=== PATIENT | male | born 1960 | race Caucasian/White ===

== ENCOUNTER 2023-07-19 12:39 | Inpatient (IN) | payer OTHER ==
[~2023-07-19] VITALS: Ht 188 cm; Wt 113.6 kg
[2023-07-19] MEDS: SODIUM CHLORIDE 0.9% 1,000 ML IV ONE (13:37)
[2023-07-19 14:10] LABS: Basophils # (auto) 0 10 ^3/uL (0-0.2); Basophils % (auto) 0.2 % (0.0-2.0); Chloride 102 mmol/L (98-107); Eosinophils # (auto) 0 10 ^3/uL (0-0.8); Eosinophils % (auto) 0.3 % (0.0-7.0); Hematocrit 36.5 % (41.0-53.0); Hemoglobin 12.3 g/dL (13.5-17.5); Lymphocytes # (auto) 0.7 10 ^3/uL (0.4-5.4); Lymphocytes % (auto) 6.4 % (10.0-50.0); Mean Corpuscular Hemoglobin 28.3 pg (28.0-32.0); Mean Corpuscular Hgb Conc. 33.7 g/dL (32.0-36.0); Mean Corpuscular Volume 83.9 fL (80.0-100.0); Monocytes # (auto) 0.8 10 ^3/uL (0-1.3); Monocytes % (auto) 7.9 % (0.0-12.0); Neutrophils # (auto) 9.1 10 ^3/uL (1.6-8.6); Neutrophils % (auto) 85.2 % (37.0-80.0); Potassium 3.4 mmol/L (3.5-5.1); Red Blood Cells 4.35 10^6/uL (4.5-5.90); Red Cell Distribution Width 14.7 % (11.8-14.3); Sodium 136 mmol/L (136-145); White Blood Cell 10.7 10^3/uL (4.4-10.8)
[2023-07-19 14:11] LABS: Anion Gap 5 (5-15); Carbon Dioxide 29 mmol/L (20-30)
[2023-07-19 14:12] LABS: Calcium 8.7 mg/dL (8.5-10.1)
[2023-07-19 14:16] LABS: Glucose 103 mg/dL (74-106)
[2023-07-19 14:17] LABS: BUN/Creatinine Ratio 14.9 (10.0-20.0); Blood Urea Nitrogen 21 mg/dL (9-23)
[2023-07-19 17:00] VITALS: PULSE 83; RESP 16; O2SAT 97
[2023-07-19] MEDS ORDERED: NITROGLYCERIN 0.4 MG SL TAB SL PRN (17:30)
[2023-07-19] MEDS ORDERED: DOCUSATE SOD 100 MG CAP PO PRN (17:30)
[2023-07-19] MEDS ORDERED: ONDANSETRON HCL 4 MG/2 ML VIAL IV PRN (17:30)
[2023-07-19] MEDS ORDERED: POTA-228 PO (18:53)
[2023-07-19] MEDS ORDERED: LOSA50TA30 PO (18:53)
[2023-07-19] MEDS ORDERED: AMLO1TAB23 PO (18:53)
[2023-07-19] MEDS ORDERED: MET50T PO (18:53)
[2023-07-19] MEDS ORDERED: hydrALAZINE HCL 20 MG/ML VL IV PRN (19:00)
[2023-07-19] MEDS: cefTRIAXone 1GM/50ML D5W 50 ML IV SCH (20:22)
[2023-07-19] MEDS: ACETAMINOPHEN 325 MG TAB PO PRN (20:22)
[2023-07-19] MEDS: POTASSIUM EFFERVESENT TAB 25 MEQ PO ONE (20:22)
[2023-07-19] MEDS: SODIUM CHLORIDE 0.9% 1,000 ML IV SCH (20:23)
[2023-07-19 20:43] LABS: Urine Bacteria None Seen /hpf (None Seen)
[2023-07-19 21:08] LABS: Urine Amorphous Crystal FEW /hpf (None Seen); Urine Blood Negative /uL (Negative); Urine Clarity Turbid (Clear); Urine Color Yellow (Yellow); Urine Hyaline Cast MOD /lpf (0 - 2); Urine Mucus FEW (None Seen); Urine Protein, UAD 1+ (Negative); Urine Specific Gravity 1.022 (1.001-1.035); Urine Urobilinogen Normal (Negative); Urine WBC 4 /hpf (0 - 3)
[2023-07-20] MEDS: METOPROLOL TARTRATE 50 MG TAB PO SCH (00:49)
[2023-07-20] MEDS: metroNIDAZOLE 500MG/100ML 100 ML IV SCH (00:49)
[2023-07-20 04:00] VITALS: RESP 22; O2SAT 94
[2023-07-20] MEDS: PANTOPRAZOLE 40 MG TAB PO SCH (06:05)
[2023-07-20 07:43] LABS: Alanine Aminotransferase 13 U/L (7-40); Albumin 3.9 g/dL (3.2-4.8); Alkaline Phosphatase 61 U/L (46-116); Anion Gap 9 (5-15); Aspartate Aminotransferase 13 U/L (13-40); BUN/Creatinine Ratio 13.9 (10.0-20.0); Basophils # (auto) 0.1 10 ^3/uL (0-0.2); Basophils % (auto) 0.6 % (0.0-2.0); Bilirubin, Total 0.3 mg/dL (0.2-1.0); Blood Urea Nitrogen 16 mg/dL (9-23); Calcium 9.2 mg/dL (8.7-10.4); Carbon Dioxide 28 mmol/L (20-30); Chloride 104 mmol/L (98-107); Eosinophils # (auto) 0.2 10 ^3/uL (0-0.8); Eosinophils % (auto) 1.5 % (0.0-7.0); Glucose 87 mg/dL (74-106); Hematocrit 36.3 % (41.0-53.0); Hemoglobin 12.1 g/dL (13.5-17.5); Lymphocytes # (auto) 1.3 10 ^3/uL (0.4-5.4); Lymphocytes % (auto) 13.5 % (10.0-50.0); Mean Corpuscular Hemoglobin 28.3 pg (28.0-32.0); Mean Corpuscular Hgb Conc. 33.4 g/dL (32.0-36.0); Mean Corpuscular Volume 84.7 fL (80.0-100.0); Monocytes # (auto) 0.9 10 ^3/uL (0-1.3); Neutrophils # (auto) 7.5 10 ^3/uL (1.6-8.6); Neutrophils % (auto) 75.4 % (37.0-80.0); Potassium 3.7 mmol/L (3.5-5.1); Red Blood Cells 4.28 10^6/uL (4.5-5.90); Sodium 141 mmol/L (136-145); Total Protein 6.5 g/dL (5.7-8.2)
[2023-07-20] MEDS ORDERED: PATIENTS OWN MEDICATION (Losartan Potassium & Hydrochlo (Losartan Potassium/Hydroc) 1 TAB) PO SCH (10:00)
[2023-07-20] MEDS: LOSARTAN POTASSIUM 50 MG TAB PO SCH (10:21)
[2023-07-20] MEDS: hydroCHLOROthiazide 25 MG TAB PO SCH (10:21)
[2023-07-20] MEDS: POTASSIUM CHL 10 Meq TABLET PO SCH (10:22)
[2023-07-20] MEDS: amLODIPine BESYLATE 5 MG TAB PO SCH (10:22)
[2023-07-20 10:59] VITALS: TEMP 98.5
[2023-07-20 14:00] VITALS: BP 126/74; RESP 12; O2SAT 95
[2023-07-20 14:16] VITALS: PULSE 90
[2023-07-20] MEDS ORDERED: METOPROLOL TARTRATE 50 MG TAB PO SCH (22:00)
== END 2023-07-20 18:22 | disposition left against medical advice (07) | DRG 640 ==
LOC: EDBD 12:39 → ER 12:39 → TELE 17:42
PROVIDERS: ADMIT Internal Medicine Pulmonary Disease; ATTEND Internal Medicine Pulmonary Disease
DX: E86.0 Dehydration (principal); N17.0 Acute kidney failure with tubular necrosis; R19.7 Diarrhea, unspecified; E87.6 Hypokalemia; I67.1 Cerebral aneurysm, nonruptured; S09.90XA Unspecified injury of head, initial encounter; W01.0XXA Fall on same level from slipping, tripping and stumbling without subsequent striking against object, initial encounter; I10 Essential (primary) hypertension; F17.200 Nicotine dependence, unspecified, uncomplicated; Z53.29 Procedure and treatment not carried out because of patient's decision for other reasons; Z86.73 Personal history of transient ischemic attack (TIA), and cerebral infarction without residual deficits; Y93.89 Activity, other specified; Y92.89 Other specified places as the place of occurrence of the external cause; Y99.8 Other external cause status; Z88.5 Allergy status to narcotic agent; Z82.3 Family history of stroke; Z82.49 Family history of ischemic heart disease and other diseases of the circulatory system
CPT/HCPCS: 36415; 70450; 70545; 70551; 72125; 74018; 80048; 80053; 81001; 84484; 85025; 93005; 93886; 95819; G0378; J3490